=== PATIENT | female | born 1945 | race Caucasian/White ===

== ENCOUNTER → 2020-05-23 | Outpatient (CLI) | payer MEDICARE, BC ==
[~2020-05-23] MED LIST: ALDACTONE 25MG25 MG PO; AMLODIPINE BESY10 MG PO; ATORVASTATIN CA10 MG PO; BENAZEPRIL HCL40 MG PO; CITALOPRAM HBR40 MG PO; COMPAZINE 10MG10 MG PO; DESYREL 50 MG T50 MG PO; ELIQUIS 5 MG TAB5 MG PO; GLUCOTROL XL 22.5 MG PO; LANTUS100 UNIT/1 SQ; LETROZOLE2.5 MG PO; MONTELUKAST SOD10 MG PO; ONDANSETRON HCL8 MG PO; RESTORIL30 MG PO; TIZANIDINE HCL4 MG PO
[2020-05-23 10:58] LABS: HEMOGLOBIN 14.8 gm/dl (12.3-15.3); RED BLOOD COUNT 4.52 M/UL (4.00-5.10); WHITE BLOOD COUNT 7.8 K/UL (4.5-11.0)
[2020-05-23 11:22] LABS: BUN/CREATININE RATIO 14 (0-10)
[2020-05-24 09:14] LABS: THYROXINE (T4) 6.8 ug/dL (4.5-12.0); VITAMIN D, 25-HYDROXY 41.6 ng/mL (30.0-100.0)
== END ==
LOC: LAB 10:06
PROVIDERS: Nurse Practitioner Family
DX: E11.9 Type 2 diabetes mellitus without complications (principal); I10 Essential (primary) hypertension; R53.83 Other fatigue; E78.5 Hyperlipidemia, unspecified; E55.9 Vitamin D deficiency, unspecified
CPT/HCPCS: 36415; 80053; 80061; 82043; 82570; 83036; 84436; 84443; 84480; 85025

== ENCOUNTER 2020-07-22 16:19 | Observation (INO) | payer MEDICARE, BC ==
[~2020-07-22] VITALS: Ht 157.5 cm; Wt 97.3 kg
[2020-07-22 17:40] LABS: HEMOGLOBIN 14.3 gm/dl (12.3-15.3); RED BLOOD COUNT 4.42 M/UL (4.00-5.10); WHITE BLOOD COUNT 8.7 K/UL (4.5-11.0)
[2020-07-22 17:55] LABS: BUN/CREATININE RATIO 28 (0-10)
[2020-07-22] MEDS ORDERED: BENAZEPRIL HCL40 MG PO (19:18)
[2020-07-22] MEDS ORDERED: ATORVASTATIN CA10 MG PO (19:18)
[2020-07-22] MEDS ORDERED: ONDANSETRON HCL8 MG PO (19:18)
[2020-07-22] MEDS ORDERED: GLUCOTROL XL 22.5 MG PO (19:19)
[2020-07-22] MEDS ORDERED: CITALOPRAM HBR40 MG PO (19:19)
[2020-07-22] MEDS ORDERED: LETROZOLE2.5 MG PO (19:20)
[2020-07-22] MEDS ORDERED: AMLODIPINE BESY10 MG PO (19:21)
[2020-07-22] MEDS ORDERED: DESYREL 50 MG T50 MG PO (19:21)
[2020-07-22] MEDS ORDERED: ALDACTONE 25MG25 MG PO (19:21)
[2020-07-22] MEDS ORDERED: TIZANIDINE HCL4 MG PO (19:22)
[2020-07-22] MEDS ORDERED: MONTELUKAST SOD10 MG PO (19:22)
[2020-07-22] MEDS ORDERED: COMPAZINE 10MG10 MG PO (19:23)
[2020-07-22] MEDS ORDERED: LANTUS100 UNIT/1 SQ (19:24)
[2020-07-22] MEDS ORDERED: RESTORIL30 MG PO (19:24)
[2020-07-23] MEDS ORDERED: ELIQUIS 5 MG TAB5 MG PO (10:01)
== END 2020-07-23 12:27 | disposition home or self-care (01) ==
LOC: ER1 16:19 → CDU 17:47 → M/S 18:49
PROVIDERS: Emergency Medicine; ADMIT Internal Medicine
DX: I82.401 Acute embolism and thrombosis of unspecified deep veins of right lower extremity (principal); E11.9 Type 2 diabetes mellitus without complications; I10 Essential (primary) hypertension; E78.5 Hyperlipidemia, unspecified; Z85.3 Personal history of malignant neoplasm of breast; Z79.899 Other long term (current) drug therapy; Z20.822 Contact with and (suspected) exposure to COVID-19
CPT/HCPCS: 80053; 82550; 82553; 82962; 83874; 84484; 85025; 85610; 85730; 93005; 93971; 96374; 96375; 99285; G0378; J2270; J2405; U0002

== ENCOUNTER → 2020-11-24 | Outpatient (CLI) | payer MEDICARE, BC ==
[2020-11-24 09:46] LABS: HEMOGLOBIN 13.9 gm/dl (12.3-15.3); RED BLOOD COUNT 4.26 M/UL (4.00-5.10); WHITE BLOOD COUNT 6.5 K/UL (4.5-11.0)
[2020-11-24 10:11] LABS: BUN/CREATININE RATIO 17 (0-10)
[2020-11-25 06:12] LABS: THYROXINE (T4) 7.2 ug/dL (4.5-12.0); VITAMIN D, 25-HYDROXY 34.2 ng/mL (30.0-100.0)
== END ==
LOC: LAB 08:26
PROVIDERS: Nurse Practitioner
DX: E78.5 Hyperlipidemia, unspecified (principal); R53.83 Other fatigue; E55.9 Vitamin D deficiency, unspecified; E11.8 Type 2 diabetes mellitus with unspecified complications
CPT/HCPCS: 36415; 80053; 80061; 83036; 84436; 84443; 84480; 85025

== ENCOUNTER → 2020-12-09 | Outpatient (CLI) | payer MEDICARE, BC ==
[2020-12-10 10:13] LABS: THYROXINE (T4) 7.6 ug/dL (4.5-12.0)
== END ==
LOC: LAB 10:18
PROVIDERS: Nurse Practitioner
DX: R53.83 Other fatigue (principal)
CPT/HCPCS: 36415; 84436; 84443; 84480

== ENCOUNTER → 2021-02-14 | Outpatient (CLI) | payer MEDICARE, BC | LOC: RAD 11:28 | DX: R06.02 Shortness of breath (principal) | CPT/HCPCS: 71046 ==

== ENCOUNTER → 2021-03-06 | Outpatient (CLI) | payer MEDICARE, BC | LOC: NM 09:30 | DX: R07.9 Chest pain, unspecified (principal) | CPT/HCPCS: 78452; 93017; A9502; J2785 ==

== ENCOUNTER → 2021-03-16 | Outpatient (CLI) | payer MEDICARE, BC ==
[2021-03-16 09:34] LABS: HEMOGLOBIN 14.8 gm/dl (12.3-15.3); RED BLOOD COUNT 4.56 M/UL (4.00-5.10); WHITE BLOOD COUNT 7.3 K/UL (4.5-11.0)
[2021-03-17 07:11] LABS: ALKALINE PHOSPHATASE, S 94 IU/L (44-121); ALT (SGPT) 14 IU/L (0-32); AST (SGOT) 17 IU/L (0-40); BILIRUBIN, TOTAL 1.1 mg/dL (0.0-1.2); BUN 8 mg/dL (8-27); BUN/CREATININE RATIO 10 (12-28); CALCIUM, SERUM 9.5 mg/dL (8.7-10.3); CARBON DIOXIDE, TOTAL 19 mmol/L (20-29); CHLORIDE, SERUM 105 mmol/L (96-106); CHOLESTEROL, TOTAL 142 mg/dL (100-199); CREATININE, SERUM 0.79 mg/dL (0.57-1.00); EGFR IF AFRICN AM 84 (>59); EGFR IF NONAFRICN AM 73 (>59); ESTIM. AVG GLU (EAG) 160 mg/dL (.); GLOBULIN, TOTAL 2.1 g/dL (1.5-4.5); GLUCOSE, SERUM 171 mg/dL (65-99); HDL CHOLESTEROL 51 mg/dL (>39); HEMOGLOBIN A1C 7.2 % (4.8-5.6); LDL CHOLESTEROL CALC 68 mg/dL (0-99); LDL/HDL RATIO 1.3 ratio (0.0-3.2); POTASSIUM, SERUM 4.5 mmol/L (3.5-5.2); PROTEIN, TOTAL, SERUM 6.3 g/dL (6.0-8.5); SODIUM, SERUM 140 mmol/L (134-144); T. CHOL/HDL RATIO 2.8 ratio (0.0-4.4); THYROXINE (T4) 7.2 ug/dL (4.5-12.0); TRIGLYCERIDES 133 mg/dL (0-149); TRIIODOTHYRONINE (T3) 159 ng/dL (71-180); VITAMIN D, 25-HYDROXY 28.3 ng/mL (30.0-100.0)
== END ==
LOC: LAB 08:28
PROVIDERS: Nurse Practitioner
DX: E78.5 Hyperlipidemia, unspecified (principal); R53.83 Other fatigue; E55.9 Vitamin D deficiency, unspecified; E11.8 Type 2 diabetes mellitus with unspecified complications
CPT/HCPCS: 36415; 80053; 80061; 83036; 84436; 84443; 84480; 85025

== ENCOUNTER → 2021-08-09 | Outpatient (CLI) | payer MEDICARE, BC ==
[2021-08-09 10:26] LABS: HEMOGLOBIN 14.1 gm/dl (12.3-15.3); RED BLOOD COUNT 4.46 M/UL (4.00-5.10); WHITE BLOOD COUNT 6.5 K/UL (4.5-11.0)
[2021-08-09 13:35] LABS: BUN/CREATININE RATIO 14 (0-10)
== END ==
LOC: LAB 09:45
PROVIDERS: Nurse Practitioner Family
DX: I10 Essential (primary) hypertension (principal); E11.9 Type 2 diabetes mellitus without complications; E55.9 Vitamin D deficiency, unspecified; E53.8 Deficiency of other specified B group vitamins; E03.9 Hypothyroidism, unspecified; E66.9 Obesity, unspecified
CPT/HCPCS: 36415; 80053; 80061; 82043; 82607; 82746; 83036; 84443; 85027

== ENCOUNTER → 2021-11-21 | Outpatient (CLI) | payer MEDICARE, BC ==
[2021-11-21 09:42] LABS: HEMOGLOBIN 14.1 gm/dl (12.3-15.3); RED BLOOD COUNT 4.36 M/UL (4.00-5.10); WHITE BLOOD COUNT 7.5 K/UL (4.5-11.0)
[2021-11-21 10:03] LABS: BUN/CREATININE RATIO 14 (0-10)
== END ==
LOC: LAB 09:19
PROVIDERS: Nurse Practitioner Family
DX: R53.83 Other fatigue (principal)
CPT/HCPCS: 36415; 80053; 85027